=== PATIENT | female | born 1975 | race Caucasian/White ===

== ENCOUNTER 2017-03-25 10:35 | Emergency (ER) | payer OTHER ==
[~2017-03-25] VITALS: Ht 162.6 cm; Wt 63.6 kg
[~2017-03-25 10:35] MED LIST: ACET500C5 PO; LORA-186 PO
[2017-03-25 10:40] VITALS: Ht 162.6 cm; Wt 63.6 kg
--- NOTE | 2017-03-25 11:47 | RADRPT ---
PROCEDURE: XR Ankle. CLINICAL INDICATION: Right ankle pain TECHNIQUE: 3 views of the right ankle were performed. COMPARISON: None. FINDINGS: There is no acute fracture. Alignment is normal. Joint spaces are preserved. There is moderate lateral soft tissue swelling noted. IMPRESSION: 1. No radiographic evidence of acute osseous abnormality. 2. Moderate lateral soft tissue swelling. RPTAT: [facility] .Cali Rodriguez MD, MD Date Time Electronically viewed and signed by .Cali Rodriguez MD, on 03/25/2017 11:46 .K/
[2017-03-25] MEDS ORDERED: IBUP400T22 PO (12:03)
--- NOTE | 2017-03-25 14:39 | ERD ---
ER Documentation Chief Complaint Chief Complaint Complains of right ankle pain x 2 days HPI 41-year-old female patient with no significant past medical history presents to the ED complaining of right ankle injury that occurred 4 days ago. States that she was walking and dropping her kids off by school and accidentally twisted her right ankle. States that she fell but denies any head or neck injuries. Denies any loss of consciousness. Denies any chest pain, shortness of breath, nausea, vomiting, loss of sensation, loss of range of motion, diarrhea. ROS All systems reviewed and are negative except as per history of present illness. Medications Home Meds Active Scripts Ibuprofen* (Motrin*) 400 Mg Tab, 400 MG PO Q6, #20 TAB Prov:DAMIAN VELOZ PA-C 03/25/17 Loratadine* (Claritin*) 10 Mg Tablet, 10 MG PO DAILY, #30 TAB Prov:GENI HERNANDEZ PA-C 05/29/15 Acetaminophen* (Tylophen*) 500 Mg Capsule, 1 CAP PO Q6H Y for PAIN AND OR ELEVATED TEMP, #30 CAP Prov:GENI HERNANDEZ PA-C 05/29/15 Allergies Allergies: Coded Allergies: No Known Drug Allergy (Verified Allergy, Unknown, 03/25/17) PMhx/Soc Medical and Surgical Hx: pt denies Medical Hx, pt denies Surgical Hx History of Surgery: No Anesthesia Reaction: No Hx Neurological Disorder: No Hx Respiratory Disorders: No Hx Cardiac Disorders: No Hx Psychiatric Problems: No Hx Miscellaneous Medical Probl: No Hx Alcohol Use: No Hx Substance Use: No Hx Tobacco Use: No Smoking Status: Never smoker Physical Exam Vitals Vital Signs Date Time Temp Pulse Resp B/P Pulse Ox O2 Delivery O2 Flow Rate FiO2 03/25/17 10:40 97.4 67 20 116/67 96 Physical Exam Const: [id number], well-nourished. In no acute distress. Head: Atraumatic, normocephalic Eyes: Normal Conjunctiva without injection ENT: Normal external ear, nose and mouth. Neck: Full range of motion. No meningismus. Resp: Clear to auscultation bilaterally. No wheezing, rhonchi, rales, or crackles. No accessory muscle use. No retractions. Cardio: Regular rate and rhythm, no murmurs Skin: No petechiae or rashes Back: No midline tenderness. No CVA tenderness. Ext: No cyanosis, or edema. Cap refill less than 2 seconds. Distal pulses intact bilaterally. Palpation of the right lateral malleolus. No tenderness to palpation of the right distal 5th metatarsal. Edema noted over the right lateral malleolus. No deformities noted. No ecchymosis or erythema. No warmth to touch. Full range of motion with plantar flexion, dorsiflexion. Neur: Awake and alert. Slight limping gait due to pain and normal coordination. Muscle strength 5/5. Sensation intact bilaterally. Psych: Normal Mood and Affect Procedures/MDM This is a 41-year-old female patient with no significant past medical history presents to the ED complaining of a right ankle injury that occurred 4 days ago and the pain worsened 2 days ago. Patient is afebrile and nontoxic-appearing. Patient has normal vital signs. A right ankle x-ray was ordered to further evaluate patient. PROCEDURE: XR Ankle. CLINICAL INDICATION: Right ankle pain TECHNIQUE: 3 views of the right ankle were performed. COMPARISON: None. FINDINGS: There is no acute fracture. Alignment is normal. Joint spaces are preserved. There is moderate lateral soft tissue swelling noted. IMPRESSION: 1. No radiographic evidence of acute osseous abnormality. 2. Moderate lateral soft tissue swelling. Patient is placed in a right ankle dionna wrap. Patient did not want crutches. Splint Assessment: Neurovascularly intact pre and post splint placement with good fit. Patient likely has has an ankle sprain. Patient's extremity symptoms have stabilized while they have been evaluated in the department and are appropriate for outpatient follow up. No evidence of fractures, dislocations, compartment syndrome, neurologic injury, vascular injury, open joint, open fracture, tendon laceration, septic arthritis, osteomyelitis, DVT, foreign body, or other emergent conditions. Discharge medications: Ibuprofen Follow up with primary care physician in 1-2 days. Instructed patient to return to the ED sooner for any worsening symptoms. Patient's questions were answered. Patient understood and agreed with discharge plan. Patient discharged stable. Departure Diagnosis: Primary Impression: Ankle injury Encounter type: initial encounter Laterality: right Qualified Code: S99.911A - Injury of right ankle, initial encounter Condition: Stable Patient Instructions: What Are Ankle Sprains?, Treating Ankle Sprains Referrals: [facility] (PCP) [facility] Ur[facility] Care 7 a.m.- 11 p.m. Every Day of the Week NO APPOINTMENT OR AUTHORIZATION NEEDED COMMUNITY CLINIC () Usted se suarez hecho un examen mdico de control que le indica que no est en roman condicin que requiera tratamiento urgente en el Departamento de Emergencia. Un estudio ms profundo y el tratamiento de freeman condicin pueden esperar sin ningn riesgo hasta que usted sea atendida/o en el consultorio de freeman mdico o roman cl giselle. Es responsabilidad suya arreglar roman darby para el seguimiento del danette. MANEJO DE CONDICIONES NO URGENTES EN EL FUTURO 1) Si usted tiene un mdico de atencin primaria: Usted debera llamar a freeman mdico de atencin primaria antes de venir al departamento de emergencia. Despus de las horas de consultorio, freeman doctor o freeman asociado/a est disponible por telfono. El mdico o enfermero de chao en el servicio telefnico puede asesorarle por peggy medio para atender el problema, o danette contrario se puede programar roman darby. 2) Si usted no tiene un mdico de atencin primaria: Llame al mdico o clnica de referencia que aparece abajo clyde las horas de consultorio para hacer roman darby para que le vean. CLINICAS: [facility] [phone] [facility] [phone] [facility] [phone] [facility]. [place] [phone] [facility]. [place] [id number] [phone] [facility] [phone] [address] [facility] Hours: Mon-Fri 9:00 AM - 5:00 PM [facility] () Martha se suarez hecho un examen mdico de control que le indica que no est en roman condicin que requiera tratamiento urgente en el Departamento de Emergencia. Un estudio ms profundo y el tratamiento de freeman condicin pueden esperar sin ningn riesgo hasta que usted sea atendida/o en el consultorio de freeman mdico o roman cl giselle. Es responsabilidad suya arreglar roman darby para el seguimiento del danette. MANEJO DE CONDICIONES NO URGENTES EN EL FUTURO 1) Si usted tiene un mdico de atencin primaria: Usted debera llamar a freeman mdico de atencin primaria antes de venir al departamento de emergencia. Despus de las horas de consultorio, freeman doctor o freeman asociado/a est disponible por telfono. El mdico o enfermero de chao en el servicio telefnico puede asesorarle por peggy medio para atender el problema, o danette contrario se puede programar roman darby. 2) Si usted no tiene un mdico de atencin primaria: Llame al mdico o condado institucions de referencia que aparece abajo clyde las horas de consultorio para hacer roman darby para que le vean. SI USTED NO PUEDE PAGAR PARA AR UN MEDICO puede ir a: [facility] [phone] [place] [address] [facility] [address] [place] [address] [facility] [address] [place] [address] PARA [facility] [address] [place] [address] Additional Instructions: Llame al doctor MAANA y jahaira roman DARBY PARA DENTRO DE 2-3 ANNE.Dgale a la secretaria que nosotros le instruimos hacer esta darby.Avise o llame si freeman condicin se empeora antes de la darby. Regresa aqui si peor o no mejor. Seguimiento con un mdico ortopdico si los sntomas no mejoran DAMIAN VELOZ PA-C Mar 25, 2017 14:39 DAMIAN VELOZ PA-C Mar 25, 2017 14:39
== END 2017-03-25 12:22 | disposition home or self-care (01) ==
LOC: FTE 10:35
DX: S99.911A Unspecified injury of right ankle, initial encounter (principal); X50.9XXA Other and unspecified overexertion or strenuous movements or postures, initial encounter; Y92.219 Unspecified school as the place of occurrence of the external cause
CPT/HCPCS: 73610; Z7502